=== PATIENT | male | born 1990 | race Caucasian/White ===

== ENCOUNTER 2017-03-06 12:44 | Day surgery (SDC) | payer OTHER ==
[~2017-03-06] VITALS: Ht 182.9 cm; Wt 74.8 kg
[~2017-03-06 12:44] MED LIST: ADDERALL20 MG PO; KLONOPIN1 MG PO; MOTRIN800 MG PO
[2017-03-06 13:39] VITALS: BP 138/80
[2017-03-06 14:04] LABS: HEMATOCRIT 47.1 % (38.0-50.0); MCH 29.5 PG (29.0-34.0); MCHC 33.1 G/DL (30.0-36.0); MCV 89.2 FL (86-99); MEAN PLAT.VOLUME 10.7 uM^3 (9.0-12.4); PLATELET COUNT 261 K/uL (156-360); RBC DIS.WIDTH-CV 11.9 % (11.8-14.6); RBC DIS.WIDTH-SD 38.9 % (39-53); RED BLOOD COUNT 5.28 M/uL (4.00-5.50); WHITE BLOOD COUNT 8.3 K/uL (4.1-10.2)
[2017-03-06 19:15] VITALS: BP 150/95
[2017-03-06 20:19] VITALS: BP 160/85
== END 2017-03-06 20:23 | disposition home or self-care (01) ==
LOC: SDC 12:44
PROVIDERS: Orthopaedic Surgery Hand Surgery
PROC: 0PSH04Z Reposition Right Radius with Internal Fixation Device, Open Approach (ICD-10-PCS; principal; 2017-03-06)
DX: S52.571A Other intraarticular fracture of lower end of right radius, initial encounter for closed fracture (principal); S52.611A Displaced fracture of right ulna styloid process, initial encounter for closed fracture; W13.2XXA Fall from, out of or through roof, initial encounter; Y93.H9 Activity, other involving exterior property and land maintenance, building and construction; Y92.008 Other place in unspecified non-institutional (private) residence as the place of occurrence of the external cause; F90.1 Attention-deficit hyperactivity disorder, predominantly hyperactive type; F17.210 Nicotine dependence, cigarettes, uncomplicated
CPT/HCPCS: 73100; 76000; 85027; C1713; J0131; J0690; J1170; J2250; J2405; J3010; S0020